=== PATIENT | female | born 1975 | race Caucasian/White ===

== ENCOUNTER 2018-08-01 19:38 | Emergency (ER) | payer BC ==
[2018-08-01 20:01] VITALS: BP 124/85; PULSE 89; TEMP 98; BMI 26.2
[2018-08-01 21:18] LABS: BASO % 0.3 % (0-2.0); EOS % 2.9 % (0-4.5); HEMATOCRIT 41.7 % (32.4-45.2); LYMPH % 29.5 % (8-40); MCH 30.2 pg (25.7-33.7); MCHC 33.5 g/dl (32.0-36.0); MEAN PLT VOLUME 7.4 fl (7.5-11.1); MONO % 6.3 % (3.8-10.2); PLATELET COUNT 310 K/MM3 (134-434); RBC 4.64 M/mm3 (3.60-5.2); RDW 12.3 % (11.6-15.6); WHITE BLOOD COUNT 7.5 K/mm3 (4.0-10.8)
[2018-08-01 21:22] LABS: INR 1.05 (0.82-1.09); PROTHROMBIN TIME (PATIENT) 11.7 SEC (10.2-13.0)
[2018-08-01 21:28] LABS: ALBUMIN 4.1 g/dl (3.4-5.0); BILIRUBIN,TOTAL 0.5 mg/dl (0.2-1); CALCIUM 8.6 mg/dl (8.5-10); CREATININE 0.6 mg/dl (0.55-1.3); POTASSIUM 4.1 mmol/L (3.5-5.1); TOT PROT 7.1 g/dl (6.4-8.2)
--- NOTE | 2018-08-02 00:18 | PDOC ---
Documentation entered by Conchita Sinclair SCRIBE, acting as scribe for Bria Montoya MD. Bria Montoya MD: This documentation has been prepared by the Yahir amos Brenda, SCRIBE, under my direction and personally reviewed by me in its entirety. I confirm that the documentation accurately reflects all work, treatment, procedures, and medical decision making performed by me. History of Present Illness - General Chief Complaint: Pain Stated Complaint: RT ARM PAIN History Source: Patient Exam Limitations: No Limitations - History of Present Illness Initial Comments: 08/01/18 20:53 The patient is a 43 year old female, with a significant PMH of thyroid cancer ( s/p thyroidectomy in 2012) who presents to the emergency department with progressively worsening right arm pain since this morning. The patient reports feeling discomfort on right armpit upon waking up. She notes that the discomfort radiated to the arm throughout the day as pain. She notes that the pain is aggravated upon palpation and hyper extension, and ROM has been decreased. The patient also presents with a non tender bruised area of the right wrist,sustained while playing. The patient denies history of cellulitis or abscess. Denies chest pain, shortness of breath, headache and dizziness. Denies fever, chills, nausea, vomiting, diarrhea and constipation. Allergies: NKA Past surgical history: Thyroidectomy (2012) Social history: Denies tobacco use, alcohol use, illicit drug use. Past History - Past Medical History Allergies/Adverse Reactions: Allergies Allergy/AdvReac Type Severity Reaction Status Date / Time No Known Allergies Allergy Unverified 08/01/18 19:42 Home Medications: Ambulatory Orders Amox-Tr/K Cl [Augmentin - 875Mg Tablet] 1 tab PO BID #14 tablet 08/01/18 COPD: No Thyroid Disease: Yes - Suicide/Smoking/Psychosocial Hx Smoking History: Never smoked Review of Systems - Review of Systems Able to Perform ROS?: Yes Comments:: 08/01/18 20:53 GENERAL/CONSTITUTIONAL: No fever or chills. No weakness. HEAD, EYES, EARS, NOSE AND THROAT: No change in vision. No ear pain or discharge. No sore throat. CARDIOVASCULAR: No chest pain or shortness of breath. RESPIRATORY: No cough, wheezing, or hemoptysis. GASTROINTESTINAL: No nausea, vomiting, diarrhea or constipation. GENITOURINARY: No dysuria, frequency, or change in urination. MUSCULOSKELETAL: + right arm pain. + Right arm swelling. +armpit discomfort. No neck or back pain. SKIN: + non tender ecmoteic area of the right wrist NEUROLOGIC: No headache, vertigo, loss of consciousness, or change in strength/ sensation. ENDOCRINE: No increased thirst. No abnormal weight change. HEMATOLOGIC/LYMPHATIC: No anemia, easy bleeding, or history of blood clots. ALLERGIC/IMMUNOLOGIC: No hives or skin allergy. *Physical Exam - Vital Signs Last Vital Signs Temp Pulse Resp BP Pulse Ox 98 F 89 16 124/85 100 08/01/18 19:39 08/01/18 19:39 08/01/18 19:39 08/01/18 19:39 08/01/18 19:39 - Physical Exam Comments: 08/01/18 20:53 GENERAL: Awake, alert, and fully oriented, in no acute distress HEAD: No signs of trauma EYES: PERRLA, EOMI, sclera anicteric, conjunctiva clear ENT: Auricles normal inspection, hearing grossly normal, nares patent, oropharynx clear without exudates. Moist mucosa NECK: Normal ROM, supple, no lymphadenopathy, JVD, or masses LUNGS: Breath sounds equal, clear to auscultation bilaterally. No wheezes, and no crackles HEART: Regular rate and rhythm, normal S1 and S2, no murmurs, rubs or gallops ABDOMEN: Soft, nontender, normoactive bowel sounds. No guarding, no rebound. No masses EXTREMITIES: + Mild edema and mild tenderness of the anterior aspect of the upper right arm. + Erythematous tender lymphangitic streak from antecubital fossa to the mid upper arm. + 4 cm by 2 cm non tender ecmoteic area of the volar aspect of the distal forearm.+ Decreased extension of the right elbow secondary to pain. No clubbing or cyanosis. No cords NEUROLOGICAL: Cranial nerves II through XII grossly intact. Normal speech, normal gait SKIN: No other skin break, laceration, area of fluctuations or abscess noted. No lymphadenopathy palpated . Warm, Dry, normal turgor. ED Treatment Course - LABORATORY CBC & Chemistry Diagram: 08/01/18 20:32 08/01/18 20:32 - ADDITIONAL ORDERS Additional order review: Laboratory Results 08/01/18 08/01/18 20:32 20:32 PT with INR 11.7 INR 1.05 Sodium 136 Potassium 4.1 Chloride 104 Carbon Dioxide 25 Anion Gap 7 L BUN 25.0 H Creatinine 0.6 Est GFR (CKD-EPI)AfAm 128.48 Est GFR (CKD-EPI)NonAf 110.86 Random Glucose 97 Calcium 8.6 Total Bilirubin 0.5 AST 17 ALT 17 Alkaline Phosphatase 104 Total Protein 7.1 Albumin 4.1 08/01/18 20:32 RBC 4.64 MCV 90.0 MCHC 33.5 RDW 12.3 MPV 7.4 L Neutrophils % 61.0 Lymphocytes % 29.5 Monocytes % 6.3 Eosinophils % 2.9 Basophils % 0.3 - RADIOLOGY Radiology Studies Ordered: Category Date Time Status DUPLEX VASCUL US-1 ARM [US] Stat Ultrasound 08/01/18 20:26 Completed Medical Decision Making - Medical Decision Making As noted above, this 43-year-old woman with a history of papillary carcinoma of the thyroid, currently stable and not being treated presents with right arm pain and erythematous/violaceous streaking extending from the antecubital fossa. No fever or other systemic symptoms. Other than right distal forearm ecchymosis(minor injury several days ago) does not appear infected, no clear evidence of wound in the distal right arm. The upper arm is mildly edematous and the upper arm and antecubital fossa are both quite tender on exam. Although exam strongly suggest lymphangitis, because of the patient's history of malignancy, DVT of the arm needs to be ruled out. Doppler duplex ultrasound of the right arm performed to rule out DVT. CBC/INR/chemistry profile sent Ultrasound interpreted by Dr. Ariza of the radiology staff: No evidence of DVT Laboratory evaluation essentially normal. No evidence of leukocytosis or other abnormality of the CBC. The BUN is 25 and creatinine 0.6, suggesting prerenal azotemia. Otherwise, no abnormality seen. Patient will be treated empirically for infectious lymphangitis; description for Augmentin 875/125 to be used twice a day for 1 week sent to her pharmacy. Meanwhile, the patient should apply warm packs and elevate the arm as much as possible. She should follow-up with her general medical doctor within the next 3-4 days; if she has worsening of the pain/swelling/lymphangitic streaking or develops fever/chills, she should return to the emergency room. *DC/Admit/Observation/Transfer Diagnosis at time of Disposition: Acute lymphangitis of extremity - Discharge Dispostion Disposition: HOME Condition at time of disposition: Stable - Prescriptions Prescriptions: Amox-Tr/K Cl [Augmentin - 875Mg Tablet] 1 tab PO BID #14 tablet - Referrals - Patient Instructions Printed Discharge Instructions: DI for Lymphangitis-Adult Additional Instructions: Elevation/warm compresses to right arm Augmentin 875/125 twice a day for 1 week(Take with meal) Return to ER if you have increasing swelling/pain in arm or develop fever/chills Follow-up with your doctor within the next 5 days - Post Discharge Activity
== END 2018-08-01 22:42 | disposition home or self-care (01) ==
LOC: FER 19:38
DX: L03.898 Acute lymphangitis of other sites (principal); Z85.850 Personal history of malignant neoplasm of thyroid
CPT/HCPCS: 36415; 80053; 85025; 85610; 93971; 99283-25